=== PATIENT | male | born 1955 | race Caucasian/White ===

== ENCOUNTER 2020-05-08 10:54 | Emergency (ER) | payer BC, OTHER, SELFPAY ==
[2020-05-08 10:57] VITALS: BP 160/85; PULSE 79; RESP 16; TEMP 36.1; O2SAT 100
[2020-05-08 11:18] VITALS: BP 157/89; PULSE 89; RESP 18; O2SAT 100
--- NOTE | 2020-05-08 11:35 | ED.GENADULT ---
HPI - General Adult General Chief complaint: Unspecified Stated complaint: htn Time Seen by Provider: 05/08/20 11:05 Source: patient Mode of arrival: ambulatory Limitations: no limitations History of Present Illness HPI narrative: This patient is a 64 year old male who presents for evaluation of elevated blood pressure. He has a history of hypertension and he takes losartan 25 mg daily and HCTZ daily. He reports his blood pressure has been intermittently elevated over the past 1-2 weeks. Last week his blood pressure was 130s/80s. This morning he states he was not feeling well because he did not get much sleep last night so he checked his blood pressure. His blood pressure was 170s/100 at home and he states he checked it 3 days. He states he had mild headache due to no sleep but that has resolved. HE denies having focal deficits, chest pain, shortness of breath or weakness. . Related Data Home Medications Medication Instructions Recorded Confirmed hydrochlorothiazide 12.5 mg tablet 12.5 mg PO DAILY 03/16/20 03/16/20 Allergies Allergy/AdvReac Type Severity Reaction Status Date / Time No Known Allergies Allergy Verified 05/08/20 10:59 Review of Systems Review of Systems: All systems reviewed & are unremarkable except as noted in HPI and below Constitutional: Constitutional: Denies chills and Denies fever(s) Eyes: Eyes: Denies no additional eye complaints ENT: Denies dizziness and Denies nasal congestion Cardiovascular: Cardiovascular: Denies chest pain and Denies radiating jaw, neck or arm pain Respiratory: Respiratory: Denies cough, Denies dyspnea and Denies wheezing Gastrointestinal: Gastrointestinal: Denies abdominal pain, Denies diarrhea, Denies nausea and Denies vomiting Neurologic: Denies vertigo, Denies dizziness, Denies focal weakness, Denies numbness and Denies weakness [facility] Past Medical History Medical History (Updated 05/08/20 @ 12:38 by Paula De Leon MD) Bladder polyp (~04/2014) Ganglion cyst Hypertension Surgical History Surgical History (Updated 02/07/20 @ 07:31 by Brooke Watson [facility]) H/O hernia repair (~1997) Family History Family History (Updated 03/16/20 @ 10:17 by Madonna Georges GERIATRICIAN) Father Heart disease Sibling Heart disease Mother , age 48, [place] Myocardial infarction Heart disease Sibling Breast cancer Other Family history of elevated blood lipids Social History Social History (System 10/25/19 @ 16:43 by Lisa Mayberry) Smoking status: Never smoker Alcohol intake: current Gender identity (if verbalized by the patient): Male Exam Const: General: no acute distress and alert Orientation/consciousness: patient oriented x3 HENMT: Head: normocephalic and atraumatic Ears: external ears normal and TM's normal bilaterally General nose exam: Normal external nose present Face and sinus: face symmetric Mouth: Yes lip normal and Yes tongue normal Throat: tonsils normal and uvula midline Eyes: Pupils: Equal, round and reactive pupils present EOM: EOMs intact bilaterally Chest: Chest palpation & inspection: normal inspection of the chest Resp: Effort & Inspection: normal respiratory effort and no retractions Auscultation: clear to auscultation bilaterally Cardio: Rate: regular rate Rhythm: regular rhythm Heart sounds: no murmurs GI: GI Palp: Yes Soft to palpation, No Tenderness to palpation present (GI), No Guarding due to palpation present (GI) and No Rigid due to palpation Skin: General skin exam: normal color Rashes: no rashes Neuro: General: patient oriented x3, moves all extremities, no meningeal signs, no focal motor deficits and CN's II-XI intact bilaterally Course Consultations Consultation #1: I have discussed case with Dr. Malagon who agrees patient can be discharge. He should keep a blood pressure diarrhea and follow up within 1 week. His BP is 149/92. HE is asymptomatic so will refer to PCP for
[2020-05-08 11:42] VITALS: BP 149/92; PULSE 104; RESP 13; O2SAT 99
--- NOTE | 2020-05-08 12:08 | ECG_ITS ---
Measurements Intervals [place] Rate: 78 P: 5 ID: 186 QRS: 96 QRSD: 108 T: 12 QT: 374 QTc: 428 Interpretive Statements SINUS RHYTHM MINIMAL Q WAVES- INFERIOR LEADS BORDERLINE ECG Electronically Signed On 05-08-2020 12:25:25 CDT by Haris Escobar D.O.
[2020-05-08 12:29] VITALS: BP 169/96; PULSE 82; RESP 16; O2SAT 100
[2020-05-08 13:03] VITALS: BP 151/92; PULSE 879; RESP 18; O2SAT 100
== END 2020-05-08 13:04 | disposition home or self-care (01) ==
PROVIDERS: Emergency Provider General Practice; PCP Family Medicine
DX: I10 Essential (primary) hypertension (principal)
CPT/HCPCS: 93005; 99283

== ENCOUNTER → 2021-08-27 13:47 | Outpatient (CLI) | payer MEDICARE, SELFPAY ==
--- NOTE | ~2021-08-27 | XR_ITS ---
XR chest 2V DATE: 08/27/2021 14:31 INDICATION: Cough TECHNIQUE: 2 views COMPARISON: 07/05/2017 PA and lateral chest FINDINGS: Normal heart size. No hilar or mediastinal enlargement. There is minimal atelectasis or scarring at the left lung base. No pulmonary infiltrate or consolidation, pleural effusion or pulmonary vascular congestion or pneumo thorax is detected. Diffuse osteopenia. There is degenerative spurring of the thoracic spine. IMPRESSION: Minimal atelectasis or scarring at the left lung base; otherwise no active cardiopulmonar y disease Diffuse osteopenia Reviewed, dictated and finalized at location A. IMPRESSION: Minimal atelectasis or scarring at the left lung base; otherwise no active cardiopulmonary disease Diffuse osteopenia
== END ==
PROVIDERS: PCP Family Medicine; Visit Provider Family Medicine
DX: R05.9 Cough, unspecified (principal); M47.814 Spondylosis without myelopathy or radiculopathy, thoracic region
CPT/HCPCS: 71046

== ENCOUNTER 2022-04-30 00:23 | Day surgery (SDC) | payer MEDICARE, SELFPAY ==
[2022-04-10 12:30] VITALS: BMI 24.7
--- NOTE | 2022-04-29 16:51 | PM.HPGS ---
History of Present Illness History of Present Illness Consent: Risks, benefits, and alternatives have been discussed and questions answered. Patient agrees to proceed with procedure. Chief complaint: hx of colon polyps Narrative: Anmol Chamberlain is a 66 year old male Referred for colon cancer screening. He had a polyp removed 4 years ago Review of Systems Review of Systems: All systems reviewed & are unremarkable except as noted in HPI and below PMFSH Past Medical History Medical History Bladder polyp (~04/2014) Ganglion cyst Hepatitis C antibody test negative (06/03/17) Hypertension Surgical History Surgical History H/O hernia repair (~1997) Family History Family History Father Heart disease Sibling Heart disease Mother , age 48, [place] Myocardial infarction Heart disease Sibling Breast cancer Other Family history of elevated blood lipids Social History Social History Smoking status: Never smoker Alcohol intake: current Drinks per week: 2 Substance use type: does not use Living arrangements: with family Gender identity (if verbalized by the patient): Male Spiritual care concerns: No Meds Home Medications and Allergies Home Medications Medication Instructions Recorded Confirmed Type amlodipine 2.5 mg tablet See Rx Instructions .Route 04/24/22 04/30/22 Rx .COMPLEX #90 tabs hydrochlorothiazide 12.5 mg tablet See Rx Instructions .Route 04/24/22 04/30/22 Rx .COMPLEX #90 tabs losartan 25 mg tablet 25 mg PO DAILY #90 tabs 04/24/22 04/30/22 Rx simvastatin 20 mg tablet See Rx Instructions .Route 04/24/22 04/30/22 Rx .COMPLEX #90 tabs Allergies Allergy/AdvReac Type Severity Reaction Status Date / Time No Known Allergies Allergy Verified 04/30/22 08:13 Exam Resp: Auscultation: clear to auscultation bilaterally Cardio: Rate: regular rate Rhythm: regular rhythm GI: GI Palp: Yes Soft to palpation and No Tenderness to palpation present (GI) Assessment and Plan Assessment and plan (1) Screening for colon cancer: Code(s): Z12.11 - Encounter for screening for malignant neoplasm of colon Status: Acute Assessment and Plan: Colonoscopy with possible biopsy or polypectomy or cautery or injection of substances.
[2022-04-30 08:17] VITALS: BP 134/84; PULSE 77; RESP 17; TEMP 36.6; O2SAT 99
[2022-04-30] MEDS: LACTATED RINGERS 1,000 ML 150 ML IV CONT (08:28)
--- NOTE | 2022-04-30 09:00 | WPDANESEPPF ---
Anes - Initial Pre Proc Eval Procedure: Operation Date: 04/30/22 09:30 Proposed Procedures p Screening Colonoscopy - Brody Hector MD Date/Time: 04/30/22 09:00 Surgeon: Brody Hector MD Pre Op Diagnosis: hx of colon polyps Patient Data Age: 66 Gender: M Height: 1.75 m Weight: 80.2 kg Last Vital Signs Temp 98 F 04/30/22 08:17 Pulse 77 04/30/22 08:17 Resp 17 04/30/22 08:17 BP 134/84 04/30/22 08:17 Pulse Ox 99 04/30/22 08:17 O2 Del Method Room Air 04/30/22 08:17 Allergies Allergy/AdvReac Type Severity Reaction Status Date / Time No Known Allergies Allergy Verified 04/30/22 08:13 Home Medications Medication Instructions Recorded Confirmed Type amlodipine 2.5 mg tablet See Rx Instructions .Route 04/24/22 04/30/22 Rx .COMPLEX #90 tabs hydrochlorothiazide 12.5 mg tablet See Rx Instructions .Route 04/24/22 04/30/22 Rx .COMPLEX #90 tabs losartan 25 mg tablet 25 mg PO DAILY #90 tabs 04/24/22 04/30/22 Rx simvastatin 20 mg tablet See Rx Instructions .Route 04/24/22 04/30/22 Rx .COMPLEX #90 tabs Patient hx anesthesia problems: none Family hx anesthesia problems: none Results Review: All pre-operative results and documents have been reviewed as part of the pre-operative evaluation. [facility] Past Medical History Medical History Bladder polyp (~04/2014) Ganglion cyst Hepatitis C antibody test negative (06/03/17) Hypertension Surgical History Surgical History H/O hernia repair (~1997) Family History Family History Father Heart disease Sibling Heart disease Mother , age 48, [place] Myocardial infarction Heart disease Sibling Breast cancer Other Family history of elevated blood lipids Social History Social History Smoking status: Never smoker Alcohol intake: current Drinks per week: 2 Substance use type: does not use Living arrangements: with family Gender identity (if verbalized by the patient): Male Spiritual care concerns: No Anes - Eval Final PreProcedure Day of Procedure 04/30/22 09:00 Patient weight: normal Heart: regular rate and rhythm Lungs: clear to auscultation Airway: Mallampati scale class II Neurological: alert and oriented Last oral intake: >/= 8 hours ASA classification: II Emergent: no Anesthetic plan: proceed Anesthesia type and monitoring: general GIVS and standard monitoring Results Review: All pre-operative results and documents have been reviewed as part of the pre-operative evaluation. Informed Consent: The patient's anesthetic plan and its attendant risks and benefits were discussed with the patient/family/POA. Questions were solicited and answers provided to the satisfaction of the patient/family/POA.
[2022-04-30] MEDS: SIMETHICONE ORAL SUSPENSION 20 MG/0.3 ML 30 ML BOTTLE 0.6 ML IRRIGATION (09:37)
[2022-04-30 09:46] VITALS: BP 105/66; PULSE 64; RESP 17; O2SAT 96
[2022-04-30 09:56] VITALS: BP 113/73; PULSE 60; RESP 17; O2SAT 98
[2022-04-30 10:06] VITALS: BP 129/74; PULSE 57; RESP 14; O2SAT 100
== END 2022-04-30 10:12 | disposition home or self-care (01) ==
PROVIDERS: PCP Family Medicine; Visit Provider Internal Medicine Gastroenterology
PROC: 0DJD8ZZ Inspection of Lower Intestinal Tract, Via Natural or Artificial Opening Endoscopic (ICD-10-PCS; CPT 45378; principal; 2022-04-30 09:30)
DX: Z12.11 Encounter for screening for malignant neoplasm of colon (principal); K64.8 Other hemorrhoids; K57.30 Diverticulosis of large intestine without perforation or abscess without bleeding; Z86.010 Personal history of colon polyps; I10 Essential (primary) hypertension
CPT/HCPCS: G0105; J2704; J7120

== ENCOUNTER 2023-08-18 10:08 | Outpatient (CLI) | payer MEDICARE, SELFPAY ==
[2023-08-18 12:09] LABS: Basophils Absolute Auto 0.1 K/mm3 (0.0-0.1); Basophils Percent Auto 1.1 % (0.2-1.2); Eosinophils Absolute Auto 0.2 K/mm3 (0-0.3); Eosinophils Percent Auto 4.1 % (0-4.4); Hematocrit 47.7 % (42.0-52.0); Hemoglobin 15.9 g/dL (14.0-18.0); Immature Granulocyte Absolute 0.03 K/mm3 (0.00-0.031); Immature Granulocyte Percent A 0.6 % (0-0.5); Lymphocytes Percent Auto 24.5 % (18.3-44.2); Mean Corpuscular HGB Conc 33.3 g/dl (32-36); Mean Corpuscular Hemoglobin 30.5 pg (26-34); Mean Corpuscular Volume 91.6 fl (80-100); Mean Platelet Volume 10.2 fl (7.4-10.4); Monocytes Absolute Auto 0.5 K/mm3 (0.1-0.6); Monocytes Percent Auto 9.6 % (2.6-8.5); Neutrophils Absolute Auto 3.2 K/mm3 (1.3-6.7); Neutrophils Percent Auto 60.1 % (45.5-73.1); Platelet Count Result 238 k/mm3 (150-375); Red Blood Count 5.21 M/mm3 (4.6-6.20); White Blood Count 5.3 K/mm3 (4.5-10.0)
[2023-08-18 12:17] LABS: Alanine Aminotransferase 39 U/L (6-50); Albumin Level 4.3 g/dL (3.5-5.1); Alkaline Phosphatase 81 U/L (38-126); Anion Gap 6 mmol/L (8-16); Aspartate Amino Transferase 49 U/L (17-59); Blood Urea Nitrogen 11 mg/dL (9-20); Carbon Dioxide 30 mmol/L (22-30); Chloride 101 mmol/L (98-107); Cholesterol 198 mg/dL (0-200); Estimated Glomerular Filt Rate > 60; Glucose 96 mg/dL (65-110); HDL Direct 44 mg/dL; Potassium 3.8 mmol/L (3.4-5.0); Sodium 137 mmol/L (137-145); Triglycerides 171 mg/dL (<150)
[2023-08-18 12:27] LABS: LDL Cholesterol Direct 99 mg/dL
== END 2023-08-18 10:09 | disposition home or self-care (01) ==
PROVIDERS: PCP Family Medicine; Visit Provider Family Medicine
DX: E78.2 Mixed hyperlipidemia (principal); E66.3 Overweight; I10 Essential (primary) hypertension; Z79.899 Other long term (current) drug therapy
CPT/HCPCS: 36415; 80053; 80061; 84443; 85025

== ENCOUNTER 2025-08-24 08:45 | Outpatient (RCR) | payer MEDICARE, SELFPAY | END 2025-08-31 09:16 | disposition home or self-care (01) | LOC: ANHCPREHAB 08:45 | PROVIDERS: PCP Family Medicine | DX: Z51.89 Encounter for other specified aftercare (principal); Z98.61 Coronary angioplasty status | CPT/HCPCS: 93798 ==